=== PATIENT | male | born 1945 | race Caucasian/White ===

== ENCOUNTER 2017-06-02 15:00 | Emergency (ER) | payer OTHER ==
[~2017-06-02] VITALS: Ht 175.3 cm; Wt 109.6 kg
[2017-06-02 15:06] VITALS: TEMP 36.8; Ht 175.3 cm; Wt 109.6 kg
--- NOTE | 2017-06-02 15:58 | EMERGENCY ROOM VISIT NOTE ---
History Report prepared by Daphnie: Jose Milligan Under the Supervision of: Dr. Bairon Murray M.D. First contact with patient: 15:43 Chief Complaint: WEAKNESS Stated Complaint: FATIQUE, LEG WEAKNESS, SOB History of Present Illness The patient is a 72 year old male who presents to the Emergency Room with complaints of worsening SOB that began 3 months ago. The patient complains of a headache, diarrhea, and weakness. He states that his eyes are swollen ( unchanged from baseline). He states his sugars have recently been okay. He states that he takes Plavix. He has been following up with his doctor and undergoing tests for his SOB. He had heart surgery in 2003 and had a stroke last year. He denies a cough, abdominal pain, abdominal swelling, leg swelling, syncope, blood clots, rash, and bloody stools. He denies a history of liver problems and Lyme disease Source of History: patient Onset: 3 months ago Position: other (lungs) Quality: other (shortness of breath) Timing: worsening Associated Symptoms: + headache, + diarrhea, + weakness, No cough, No abdominal pain, No rash Note: Patient denies leg swelling, abdominal swelling, and blood clots. Review of Systems See HPI for pertinent positives & negatives. A total of 10 systems reviewed and were otherwise negative. Past Medical & Surgical Medical Problems: (1) Stroke Surgical Problems: (1) Hx of heart surgery Family History Patient reports no known family medical history. Social History Smoking Status: Never Smoker Alcohol Use: none Drug Use: none Marital Status: Housing Status: lives with significant other Current/Historical Medications Scheduled Aspirin (Aspirin Ec), 81 MG PO DAILY Beclomethasone Dipropionate (N (Qnasl), 1 SPRY CELINE BID Cholecalciferol (Vitamin D3), 2 CAP PO DAILY Clopidogrel (Plavix), 75 MG PO DAILY Coenzyme Q10 (Ubidecarenone) (Coenzyme Q-10), 1 CAP PO DAILY Escitalopram Oxalate (Lexapro), 20 MG PO DAILY Fexofenadine-Pseudoephedrine (Fabiana-D 24 Hour Allergy), 1 TAB PO DAILY Insulin Glargine (Lantus), 36 UNITS SC QPM Losartan Potassium (Cozaar), 25 MG PO DAILY Metformin Hcl (Glucophage Ext Rel), 1,000 MG PO BID Metoprolol Tartrate (Lopressor) (Lopressor), 12.5 MG PO BID Multivitamin (Multivitamin), 1 TAB PO DAILY Rosuvastatin Calcium (Crestor), 10 MG PO HS Tamsulosin Hcl (Flomax), 2 CAP PO DAILY Testosterone Cypionate (Testosterone Cypionate), 1 ML IM Q14D Allergies Coded Allergies: Sulfa Antibiotics (Unverified Allergy, Unknown, A CHILD, 06/02/17) Physical Exam Vital Signs Date Time Temp Pulse Resp B/P (MAP) Pulse Ox O2 Delivery O2 Flow Rate FiO2 06/02/17 19:51 79 20 140/89 96 06/02/17 18:30 84 14 143/88 92 Room Air 06/02/17 18:01 147/86 06/02/17 18:00 85 19 90 Room Air 06/02/17 17:31 159/79 06/02/17 17:30 84 16 93 Room Air 06/02/17 17:00 79 21 142/85 91 Room Air 06/02/17 16:45 79 06/02/17 16:31 164/83 06/02/17 16:30 77 17 90 Room Air 06/02/17 16:10 71 22 150/87 93 Room Air 06/02/17 15:06 36.8 71 20 143/82 97 Room Air Physical Exam GENERAL: Patient is tired appearing and in no acute distress. EYES: No scleral icterus, unremarkable pupils. ENT: Edema below each eye which patient states is chronic. Mucous membranes moist, no nasal congestion. NECK: No masses appreciated, no meningismus, trachea is midline. RESPIRATORY: No dyspnea. Clear to auscultation and equal bilaterally. No wheeze , no rhonchi. CARDIOVASCULAR: Regular rate and rhythm. No murmurs, rubs, gallops appreciated. GASTROINTESTINAL: Abdomen soft, nontender, no peritonitis. Bowel sounds positive. No masses appreciated. BACK: No midline tenderness, no CVA tenderness EXTREMITIES: Normal motion all extremities, no cyanosis, no edema. NEUROLOGIC: Alert and oriented, no acute motor or sensory deficits, no focal weakness, cranial nerves grossly intact. SKIN: No rash, no jaundice, no diaphoresis. Medical Decision & Procedures ER Provider Diagnostic Interpretation: Radiology results and stated below per my review and radiologist interpretation: SINGLE VIEW CHEST CLINICAL HISTORY: Generalized weakness. FINDINGS: An AP, portable, upright chest radiograph is obtained. No prior studies are available for comparison at the time of dictation. The examination is degraded by portable technique and apical lordotic positioning. The patient is status post midline sternotomy. The heart is enlarged and there is atherosclerotic calcification of the thoracic aorta. The pulmonary vasculature is noncongested. No airspace consolidation or pleural effusion is identified. There is mild bibasilar atelectasis. No pneumothorax is seen. The skeletal structures are osteopenic. The bony thorax is grossly intact. IMPRESSION: Cardiomegaly with no acute cardiopulmonary abnormality. Electronically signed by: Garry Stoll M.D. 06/02/2017 4:01 PM Dictated Date/Time: 06/02/2017 4:[address] ANGIOGRAM OF THE CHEST CLINICAL HISTORY: Atypical chest pain. COMPARISON STUDY: Chest x-ray dated 06/02/2017. TECHNIQUE: Following the IV administration of 93 cc of Optiray 320, CT angiogram of the chest was performed from the upper abdomen to the thoracic inlet utilizing the pulmonary embolus protocol. Images are reviewed in the axial, sagittal, and coronal planes. 3-D MIPS images are created and assessed. IV contrast was administered without complication. A dose lowering technique was utilized adhering to the principles of ALARA. The examination is degraded by motion artifact. CT DOSE: 680.00 mGy.cm FINDINGS: Thyroid: Imaged portions of the thyroid gland are normal in size and attenuation. Thoracic aorta: The thoracic aorta is normal in caliber and demonstrates standard 3-vessel arch anatomy. No dissection is seen. Pulmonary vasculature: The pulmonary trunk is normal in caliber. There are no filling defects identified in main, lobar, or proximal segmental pulmonary branches to suggest pulmonary embolus. Evaluation of the peripheral branches is significantly degraded by motion artifact. Heart: The patient is status post midline sternotomy. The heart is enlarged and without pericardial effusion. The coronary arteries are densely calcified. Lungs and pleural spaces: Evaluation of the lung parenchyma is degraded by motion artifact. No airspace consolidation or pleural effusion is identified. The trachea and central airways are clear. Mediastinum: There is no mediastinal lymphadenopathy. Dede: Clear. Axillae: There is no axillary lymphadenopathy. Upper abdomen: Cholecystectomy clips are noted. The spleen is enlarged, measuring 16.2 cm in length. A tiny hiatal hernia is observed. Skeletal structures: The skeletal structures are osteopenic. No lytic or blastic bony lesions are seen. Mild arthritic change is noted in the thoracic spine. Degenerative change is seen in the shoulders, with postoperative change identified in the left humeral head. IMPRESSION: 1. There is no evidence of central pulmonary embolus in the main, lobar, or proximal segmental pulmonary arteries. 2. There is no airspace consolidation or pleural effusion. 3. Cardiomegaly. 4. Splenomegaly. 5. Additional findings as above. Electronically signed by: Garry Stoll M.D. 06/02/2017 7:05 PM Dictated Date/Time: 06/02/2017 7:01 PM Laboratory Results 06/02/17 16:10 Red Blood Count 5.55, Mean Corpuscular Volume 87.2, Mean Corpuscular Hemoglobin 32.3, Mean Corpuscular Hemoglobin Concent 37.0, Mean Platelet Volume 10.2, Neutrophils (%) (Auto) 38.7, Lymphocytes (%) (Auto) 44.4, Monocytes (%) (Auto) 13.3, Eosinophils (%) (Auto) 2.8, Basophils (%) (Auto) 0.5, Neutrophils # (Auto ) 2.52, Lymphocytes # (Auto) 2.88, Monocytes # (Auto) 0.86, Eosinophils # (Auto ) 0.18, Basophils # (Auto) 0.03 06/02/17 16:10 Test 06/02/17 16:08 06/02/17 16:10 Urine Color YELLOW Urine Appearance CLEAR (CLEAR) Urine pH 6.5 (4.5-7.5) Urine Specific Mcintyre 1.009 (1.000-1.030) Urine Protein NEG (NEG) Urine Glucose (UA) NEG (NEG) Urine Ketones NEG (NEG) Urine Occult Blood NEG (NEG) Urine Nitrite NEG (NEG) Urine Bilirubin NEG (NEG) Urine Urobilinogen NEG (NEG) Urine Leukocyte Esterase NEG (NEG) Urine WBC (Auto) 0 /hpf (0-5) Urine RBC (Auto) 0-4 /hpf (0-4) Urine Hyaline Casts (Auto) 0 /lpf (0-5) Urine Epithelial Cells (Auto) 0-5 /lpf (0-5) Urine Bacteria (Auto) NEG (NEG) White Blood Count 6.49 K/uL (4.8-10.8) Red Blood Count 5.55 M/uL (4.7-6.1) Hemoglobin 17.9 g/dL (14.0-18.0) Hematocrit 48.4 % (42-52) Mean Corpuscular Volume 87.2 fL (80-100) Mean Corpuscular Hemoglobin 32.3 pg (25-34) Mean Corpuscular Hemoglobin Concent 37.0 g/dl (32-36) Platelet Count 132 K/uL (130-400) Mean Platelet Volume 10.2 fL (7.4-10.4) Neutrophils (%) (Auto) 38.7 % Lymphocytes (%) (Auto) 44.4 % Monocytes (%) (Auto) 13.3 % Eosinophils (%) (Auto) 2.8 % Basophils (%) (Auto) 0.5 % Neutrophils # (Auto) 2.52 K/uL (1.4-6.5) Lymphocytes # (Auto) 2.88 K/uL (1.2-3.4) Monocytes # (Auto) 0.86 K/uL (0.11-0.59) Eosinophils # (Auto) 0.18 K/uL (0-0.5) Basophils # (Auto) 0.03 K/uL (0-0.2) RDW Standard Deviation 40.8 fL (36.4-46.3) RDW Coefficient of Variation 12.8 % (11.5-14.5) Immature Granulocyte % (Auto) 0.3 % Immature Granulocyte # (Auto) 0.02 K/uL (0.00-0.02) Anion Gap 7.0 mmol/L (3-11) Est Creatinine Clear Calc Drug Dose 68.9 ml/min Estimated GFR () 70.1 Estimated GFR (Non- 60.5 BUN/Creatinine Ratio 13.2 (10-20) Calcium Level 8.9 mg/dl (8.5-10.1) Phosphorus Level 3.3 mg/dl (2.5-4.9) Magnesium Level 2.1 mg/dl (1.8-2.4) Total Bilirubin 0.7 mg/dl (0.2-1) Direct Bilirubin 0.1 mg/dl (0-0.2) Aspartate Amino Transf (AST/SGOT) 22 U/L (15-37) Alanine Aminotransferase (ALT/SGPT) 35 U/L (12-78) Alkaline Phosphatase 53 U/L (45-117) Troponin I < 0.015 ng/ml (0-0.045) Total Protein 7.6 gm/dl (6.4-8.2) Albumin 3.8 gm/dl (3.4-5.0) Lipase 300 U/L (73-393) Thyroid Stimulating Hormone (TSH) 3.710 uIu/ml (0.300-4.500) Lyme Disease IgG Antibody NEG (NEG) Lyme Disease IgM Antibody NEG (NEG) Laboratory results as reviewed by me. ECG Per My Interpretation Indication: SOB/dyspnea Rate (beats per minute): 71 Rhythm: sinus rhythm Findings: PAC, no acute ischemic change, no ectopy, other (Qtc of 441) ED Course 1543: The patient was evaluated in room C9. A complete history and physical exam was performed. 1714: I checked on the patient and he is stable. He notes that he has a history of an abnormal thyroid but states that it normalized when he turned 51. 1824: I checked on the patient. He states that he still feels too weak. We discussed further imaging (CT scan) which he wishes to get done. He has been seen at [facility] for this same concern. 1918: I checked on the patient and he feels comfortable going home. 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 1929: Reevaluated the patient. Discussed results and discharge instructions: He verbalized understanding and agreement. The patient is ready for discharge. Medical Decision Differential: Sepsis, Infectious (UTI/Pneumonia/Meningitis/etc), Metabolic/ Electrolyte Abnormality, Cardiac, Dehydration, Anemia, Hepatic, Endocrine, Toxicologic, Neurologic, amongst other pathologies entertained. 72 yr old male arrives for evaluation of feeling weak, periodic shob and fatigue. Ongoing for the last few months and notes evaluations at [facility] several times for this. Started around time of stroke last year. Exam benign though has some swelling under each eye which is chronic though gradually worsening last few months. Work-up with EKG, Trop, CBC, BMP, TSH, Lyme, CXR unremarkable. Stating feeling SHOB and without other info felt imaging chest reasonable thus CT PE which was negative fortunately. Patient looks quite well. Suspect this may all be secondary to recent stroke and being less active though will need further work-up and evaluation, but at this time I do not feel he meets inpatient treatment. Reviewed symptoms requiring RTED. He looks well and is comfortable with this plan. Medication Reconcilliation Current Medication List: was personally reviewed by me Blood Pressure Screening Patient's blood pressure: Elevated blood pressure Blood pressure disposition: Elevated BP felt to be situational Impression Primary Impression: Fatigue Additional Impressions: Weakness Shortness of breath Scribe Attestation The scribe's documentation has been prepared under my direction and personally reviewed by me in its entirety. I confirm that the note above accurately reflects all work, treatment, procedures, and medical decision making performed by me. Departure Information Dispostion Home / Self-Care Referrals Den Johnson M.D. (PCP) Forms HOME CARE DOCUMENTATION FORM, IMPORTANT VISIT INFORMATION Patient Instructions [facility] Additional Instructions You have been examined and treated today on an emergency basis only. This is not a substitute for, or an effort to provide, complete comprehensive medical care. It is impossible to recognize and treat all injuries or illnesses in a single emergency department visit. It is therefore important that you follow up closely with your Primary Physician. Call as soon as possible for an appointment so you can review all labs, imaging and other testing that you had. Return to Emergency Department, call 911 or seek immediate medical attention if you feel your symptoms are worsening. Problem Qualifiers
--- NOTE | 2017-06-02 16:02 | DIAGNOSTIC IMAGING REPORT ---
SINGLE VIEW CHEST CLINICAL HISTORY: Generalized weakness. FINDINGS: An AP, portable, upright chest radiograph is obtained. No prior studies are available for comparison at the time of dictation. The examination is degraded by portable technique and apical lordotic positioning. The patient is status post midline sternotomy. The heart is enlarged and there is atherosclerotic calcification of the thoracic aorta. The pulmonary vasculature is noncongested. No airspace consolidation or pleural effusion is identified. There is mild bibasilar atelectasis. No pneumothorax is seen. The skeletal structures are osteopenic. The bony thorax is grossly intact. IMPRESSION: Cardiomegaly with no acute cardiopulmonary abnormality. Electronically signed by: Garry Stoll M.D. 06/02/2017 4:01 PM Dictated Date/Time: 06/02/2017 4:00 PM
[2017-06-02 16:24] LABS: BASO % 0.5 %; BASO ABS # 0.03 K/uL (0-0.2); EOS % 2.8 %; EOS ABS # 0.18 K/uL (0-0.5); HEMATOCRIT 48.4 % (42-52); HEMOGLOBIN 17.9 g/dL (14.0-18.0); IG# 0.02 K/uL (0.00-0.02); LYMPH % 44.4 %; LYMPH ABS # 2.88 K/uL (1.2-3.4); MEAN CELL VOLUME 87.2 fL (80-100); MEAN CORPUSCULAR HEMOGLOBIN 32.3 pg (25-34); MEAN PLATELET VOLUME 10.2 fL (7.4-10.4); MONO % 13.3 %; MONO ABS # 0.86 K/uL (0.11-0.59); NEUT % 38.7 %; NEUT ABS # 2.52 K/uL (1.4-6.5); PLATELET COUNT 132 K/uL (130-400); RED CELL DISTRIBUTION WIDTH CV 12.8 % (11.5-14.5); RED CELL DISTRIBUTION WIDTH SD 40.8 fL (36.4-46.3); WHITE BLOOD COUNT 6.49 K/uL (4.8-10.8)
[2017-06-02 16:41] LABS: ALBUMIN 3.8 gm/dl (3.4-5.0); ALT/SGPT 35 U/L (12-78); AST/SGOT 22 U/L (15-37); BLOOD UREA NITROGEN 16 mg/dl (7-18); CALCIUM 8.9 mg/dl (8.5-10.1); CARBON DIOXIDE 25 mmol/L (21-32); GLUCOSE 88 mg/dl (70-99); LIPASE 300 U/L (73-393); POTASSIUM 4.1 mmol/L (3.5-5.1); SODIUM 135 mmol/L (136-145)
[2017-06-02 16:44] LABS: ALKALINE PHOSPHATASE 53 U/L (45-117); PHOSPHORUS 3.3 mg/dl (2.5-4.9); TOTAL PROTEIN 7.6 gm/dl (6.4-8.2)
[2017-06-02] MEDS ORDERED: METF1TAB53 PO (17:28)
[2017-06-02] MEDS ORDERED: CRS/10 PO (17:28)
[2017-06-02] MEDS ORDERED: FEXO1TAB58 PO (17:28)
[2017-06-02] MEDS ORDERED: TAMS0.4C38 PO (17:28)
[2017-06-02] MEDS ORDERED: TEST1INJ2 IM (17:28)
[2017-06-02] MEDS ORDERED: MULT-506 PO (17:28)
[2017-06-02] MEDS ORDERED: LOSA25TA18 PO (17:28)
[2017-06-02] MEDS ORDERED: METO25TA56 PO (17:28)
[2017-06-02] MEDS ORDERED: INSDGI SC (17:28)
[2017-06-02] MEDS ORDERED: CLOP1TAB15 PO (17:28)
[2017-06-02] MEDS ORDERED: BECL1AER5 NAE (17:28)
[2017-06-02] MEDS ORDERED: COEN200C PO (17:28)
[2017-06-02] MEDS ORDERED: CHOL2000 PO (17:28)
[2017-06-02] MEDS ORDERED: ASPI81TA28 PO (17:28)
[2017-06-02] MEDS ORDERED: ESCI1TAB10 PO (17:28)
[2017-06-02] MEDS ORDERED: OPTIRAY 320 IV PRN (18:45)
--- NOTE | 2017-06-02 19:07 | DIAGNOSTIC IMAGING REPORT ---
CT ANGIOGRAM OF THE CHEST CLINICAL HISTORY: Atypical chest pain. COMPARISON STUDY: Chest x-ray dated 06/02/2017. TECHNIQUE: Following the IV administration of 93 cc of Optiray 320, CT angiogram of the chest was performed from the upper abdomen to the thoracic inlet utilizing the pulmonary embolus protocol. Images are reviewed in the axial, sagittal, and coronal planes. 3-D MIPS images are created and assessed. IV contrast was administered without complication. A dose lowering technique was utilized adhering to the principles of ALARA. The examination is degraded by motion artifact. CT DOSE: 680.00 mGy.cm FINDINGS: Thyroid: Imaged portions of the thyroid gland are normal in size and attenuation. Thoracic aorta: The thoracic aorta is normal in caliber and demonstrates standard 3-vessel arch anatomy. No dissection is seen. Pulmonary vasculature: The pulmonary trunk is normal in caliber. There are no filling defects identified in main, lobar, or proximal segmental pulmonary branches to suggest pulmonary embolus. Evaluation of the peripheral branches is significantly degraded by motion artifact. Heart: The patient is status post midline sternotomy. The heart is enlarged and without pericardial effusion. The coronary arteries are densely calcified. Lungs and pleural spaces: Evaluation of the lung parenchyma is degraded by motion artifact. No airspace consolidation or pleural effusion is identified. The trachea and central airways are clear. Mediastinum: There is no mediastinal lymphadenopathy. Dede: Clear. Axillae: There is no axillary lymphadenopathy. Upper abdomen: Cholecystectomy clips are noted. The spleen is enlarged, measuring 16.2 cm in length. A tiny hiatal hernia is observed. Skeletal structures: The skeletal structures are osteopenic. No lytic or blastic bony lesions are seen. Mild arthritic change is noted in the thoracic spine. Degenerative change is seen in the shoulders, with postoperative change identified in the left humeral head. IMPRESSION: 1. There is no evidence of central pulmonary embolus in the main, lobar, or proximal segmental pulmonary arteries. 2. There is no airspace consolidation or pleural effusion. 3. Cardiomegaly. 4. Splenomegaly. 5. Additional findings as above. Electronically signed by: Garry Stoll M.D. 06/02/2017 7:05 PM Dictated Date/Time: 06/02/2017 7:01 PM
[2017-06-02 19:51] VITALS: BP 140/89; PULSE 79; O2SAT 96
== END 2017-06-02 19:35 | disposition home or self-care (01) ==
LOC: C.EDB 15:01 → C.EDC 19:35
DX: R06.02 Shortness of breath (principal); R51 Headache; R53.83 Other fatigue; R53.1 Weakness; R03.0 Elevated blood-pressure reading, without diagnosis of hypertension; R19.7 Diarrhea, unspecified; Z86.73 Personal history of transient ischemic attack (TIA), and cerebral infarction without residual deficits; Z79.82 Long term (current) use of aspirin; Z79.4 Long term (current) use of insulin; Z79.84 Long term (current) use of oral hypoglycemic drugs; Z88.2 Allergy status to sulfonamides